=== PATIENT | male | born 1980 | race Two or more races ===

== ENCOUNTER 2019-06-02 13:46 | Inpatient (IN) | payer OTHER ==
[~2019-06-02] VITALS: Ht 175.3 cm; Wt 80.3 kg
[2019-06-02] MEDS ORDERED: LORAZEPAM INJ 2 MG/ML VIAL IV ONE ×2 (14:00→16:30)
[2019-06-02] MEDS ORDERED: IV NS 0.9% 1,000 ML BAG IV ONE ×3 (14:00→16:30)
--- NOTE | 2019-06-02 14:00 | NUR ---
EARNEST RA [address] "Acting erratic [employer] was called HR 140s BS 170" Escorted by [employer] Officer Papi [id number], TO ER BED 11, HOOKED TO MONITOR, CHANGED TO GOWN, PROVIDED W WARM BLANKET, PT AOx1, AWAITING MD HOLLAND
--- NOTE | 2019-06-02 14:01 | NUR ---
RODRIGO TOMAS AT BEDSIDE
--- NOTE | 2019-06-02 14:05 | NUR ---
PT CONFUSED, BITING CLOTHES, AGITATED. PLACED ON RESTRAINTS
[2019-06-02 14:13] LABS: BASOPHILS # (AUTO) 0.1 /CMM (0.0-0.2); BASOPHILS % (AUTO) 0.3 % (0.0-2.0); EOSINOPHILS % (AUTO) 0.3 % (0.0-6.0); HEMATOCRIT 45 % (39-51); HEMOGLOBIN 15.1 g/dL (13.5-17.5); LYMPHOCYTES # (AUTO) 1.4 /CMM (0.8-4.8); LYMPHOCYTES % (AUTO) 9.7 % (20.0-44.0); MEAN CORPUSCULAR HGB CONC 34 g/dl (31.0-36.0); MEAN CORPUSCULAR VOLUME 92 fL (80-96); MONOCYTES # (AUTO) 1.5 /CMM (0.1-1.30); MONOCYTES % (AUTO) 10.8 % (2.0-12.0); NEUTROPHILS # (AUTO) 11.3 /CMM (1.8-8.9); NEUTROPHILS % (AUTO) 78.9 % (43.0-81.0); PLATELET COUNT (AUTO) 238 /CMM (150-450); RED BLOOD CELL COUNT(AUTO) 4.86 MIL/uL (4.5-6.0); WHITE BLOOD COUNT (AUTO) 14.4 K/uL (4.3-11.0)
[2019-06-02] MEDS ORDERED: LORAZEPAM INJ 2 MG/ML VIAL ONE ×2 (14:13→16:33)
[2019-06-02 14:21] LABS: CARBON DIOXIDE 20 mmol/L (21-32); CHLORIDE 102 mmol/L (98-107); CREATININE 1.9 mg/dL (0.6-1.3); GLUCOSE 135 mg/dL (74-106); POTASSIUM 4.5 mmol/L (3.5-5.1); SODIUM SERUM 142 mmol/L (136-145); UREA NITROGEN, BLOOD 32 mg/dL (7-18)
[2019-06-02 14:34] LABS: ACETAMINOPHEN 0 ug/ml (10-30); ALANINE AMINOTRANSFERASE 38 U/L (12-78); ALBUMIN 4.7 g/dL (3.4-5.0); ALCOHOL, BLOOD < 3 mg/dL (0-0); ALKALINE PHOSPHATASE 76 U/L (46-116); ASPARTATE AMINOTRANSFERASE 41 U/L (15-37); BILIRUBIN,DIRECT 0.1 mg/dL (0.0-0.2); BILIRUBIN,TOTAL 0.8 mg/dL (0.2-1.0); TOTAL PROTEIN, SERUM 8.8 g/dL (6.4-8.2)
[2019-06-02 15:03] LABS: APPEARANCE,URINE Clear (CLEAR); BILIRUBIN,URINE Negative (NEGATIVE); BLOOD, URINE Small Ery/uL (NEGATIVE); COLOR,URINE Yellow (YELLOW); KETONES,URINE Trace (NEGATIVE); LEUKOCYTE ESTERASE ,URINE Negative (NEGATIVE); NITRITE, URINE Negative (NEGATIVE); PH,URINE 5.5 (5.0-8.0); PROTEIN,URINE 100 mg/dl (NEGATIVE); UGLUCOSE Negative (NEGATIVE); UROBILINOGEN,URINE 0.2 EU/dL (0.2)
[2019-06-02 15:13] LABS: BACTERIA,URINE Few /HPF (None Seen); FINE GRANULAR CASTS,URINE Few /LPF (None Seen); HYALINE CASTS, URINE Few /LPF (None Seen); SQUAMOUS EPITHELIAL CELL,UR Few /HPF (None Seen)
--- NOTE | 2019-06-02 15:20 | NUR ---
CMS CHECKED, CAP REFILL W/IN NORMAL LIMITS, +ROM, +SENSATION ON ALL EXTREMITIES
[2019-06-02] MEDS ORDERED: OLANZAPINE 10 MG VIAL IM ONE ×2 (15:30→15:52)
--- NOTE | 2019-06-02 15:56 | NUR ---
CALLED [facility]. HANDHOLE MACHINE OPERATOR WAS PAGED
--- NOTE | 2019-06-02 16:28 | NUR ---
PT CALM AND COOPERATIVE. REMOVED RESTRAINTS, TECH AT BEDSIDE
--- NOTE | 2019-06-02 16:32 | NUR ---
REPORT GIVEN TO AFTAB OF TELE UNIT
[2019-06-02] MEDS ORDERED: HYDROCODONE/APAP 5/325MG 1 EACH TABLET PO PRN (17:00)
[2019-06-02] MEDS ORDERED: ACETAMINOPHEN 325 MG TABLET PO PRN (17:00)
[2019-06-02] MEDS ORDERED: ONDANSETRON HCL/PF 4 MG/2 ML VIAL IVP PRN (17:00)
[2019-06-02] MEDS ORDERED: ZOLPIDEM TARTRATE 5 MG TABLET PO PRN (17:00)
[2019-06-02] MEDS ORDERED: MAG HYDROX/AL HYDROX/SIMETH 30 ML UDC PO PRN (17:00)
[2019-06-02] MEDS ORDERED: Z GUARD REMEDY 2 OZ OINT TP PRN (17:00)
[2019-06-02] MEDS ORDERED: MAGNESIUM HYDROXIDE 30 ML UDC PO PRN (17:00)
--- NOTE | 2019-06-02 17:17 | NUR ---
PT AND BELONGINGS WANDED BY SECURITY DEYANIRA GILLIS
[2019-06-02 18:35] VITALS: BP 119/81
--- NOTE | 2019-06-02 18:35 | NUR ---
HOSE FINISHERFOOD SANITARIAN NOTE RECEIVED PATIENT FROM ER BY ELIZABETH. PATIENT IS IN BED, VITAL SIGNS BP 119/81 AND IS ON CARDIAC MONITORING READING SINUS TACHYCARDIA HR 110. PATIENT BREATHING ON ROOM AIR SATURATING >95% SPO2. PATIENT BREATHING IS EVEN AND UNLABORED. PATIENT IN NO ACUTE DISTRESS. NO SOB NOTED. PATIENT IS AWAKE, ALERT AND ORIENTED X2. MD MADE AWARE OF PATIENTS ARRIVAL ON THE UNIT. PATIENT BED IS LOCKED AND IN LOWEST POSITION. CALL LIGHT WITHIN REACH. WILL ENDORSE CARE AND ADMISSION TO PM SHIFT FOR ANNALISA.
--- NOTE | 2019-06-02 19:30 | NUR ---
RECEIVED PATIENT IN BED AWAKE. NEW ADMISSION FOR LYUBOV FROM ER. AO X 3, SLOW TO ANSWER QUESTIONS AND SLOW TO FOLLOW DIRECTIONS. NO ACUTE DISTRESS NOTED. DENIES ANY PAIN AT THIS TIME. TELE READING SINUS TACH HR 114. IV SITE PATENT, INTACT; FLUSHED. SAFETY REMINDERS GIVEN. ON LOW BED WITH BILATERAL UPPER SIDE RAILS UP. CALL [place] WITHIN EASY REACH. WILL CONTINUE TO MONITOR.
[2019-06-02 20:00] VITALS: BP 118/93
[2019-06-02] MEDS: IV NS 0.9% 1,000 ML IV PRN (20:56)
[2019-06-02] MEDS ORDERED: MIRT15TA PO (22:59)
[2019-06-03] VITALS: BP 125/81
--- NOTE | 2019-06-03 02:00 | NUR ---
PATIENT AWAKE. PER PATIENT HE SLEPT FOR 15 MINS; WILL TRY TO SLEEP AGAIN. NO ACUTE DISTRESS NOTED. DENIES ANY PAIN. IVF INFUSING ORDERED. WILL CONTINUE TO MONITOR.
[2019-06-03 04:00] VITALS: BP 112/75
[2019-06-03] MEDS: IV NS 0.9% 1,000 ML IV PRN (04:33)
--- NOTE | 2019-06-03 06:14 | NUR ---
PATIENT INSISTED ON LEAVING AMA. RISKS OF LEAVING AMA AND BENEFITS OF STAYING IN THE HOSPITAL GIVEN TO PATIENT. PATIENT STILL STRONGLY INSISTED ON LEAVING AMA. PATIENT SIGNED AMA FORM. ALL BELONGINGS GIVEN TO PATIENT. IV DISCONTINUED. ARMBAND TAKEN OFF. PATIENT AO X 3, AMBULATING WITH STEADY GAIT. MAREN MAN AUTOMOTIVE DISMANTLER INFORMED. UMANG SHIRT IRONER SUPERVISOR INFORMED.
== END 2019-06-03 06:05 | disposition left against medical advice (07) | DRG 682 ==
LOC: ER 13:50 → TELE 16:32
PROVIDERS: ADMIT Student in an Organized Health Care Education/Training Program; ATTEND Student in an Organized Health Care Education/Training Program
DX: N17.0 Acute kidney failure with tubular necrosis (principal); G92 Toxic encephalopathy; E87.2 Acidosis; M62.82 Rhabdomyolysis; F15.10 Other stimulant abuse, uncomplicated; F10.10 Alcohol abuse, uncomplicated; Y90.0 Blood alcohol level of less than 20 mg/100 ml; F17.200 Nicotine dependence, unspecified, uncomplicated; E86.0 Dehydration; Z59.0 Homelessness; D72.829 Elevated white blood cell count, unspecified
CPT/HCPCS: 36415; 71045-TC; 80048-TC; 80076-TC; 80305; 81000-TC; 82550-TC; 83605-TC; 84484-TC; 85025-TC; 87081-TC; G0378; G0480; J2060; J3490; J7030

== ENCOUNTER 2019-06-12 08:25 | Emergency (ER) | payer MEDICAID, OTHER ==
[~2019-06-12] VITALS: Ht 175.3 cm; Wt 74.8 kg
[~2019-06-12 08:25] MED LIST: MIRT15TA PO
--- NOTE | 2019-06-12 08:29 | NUR ---
[facility] TO ER; "PT IS COMING IN AND OUT OF TRAFFIC" THE PATIENT WAS STOPPED BY [employer], HE INITIALLY REFUSED TO COMPY; ADMITS TO USING [facility] LAST NIGHT, -SI, -HI. TO ER BED 15, CHANGED TO GOWN, HOOKED TO MONITOR. AWAITING MD HOLLAND.
--- NOTE | 2019-06-12 08:32 | NUR ---
SECURITY CALLED - WANDED
--- NOTE | 2019-06-12 08:36 | NUR ---
DR MICHAUD AT BEDSIDE
[2019-06-12 09:23] LABS: BASOPHILS # (AUTO) 0.1 /CMM (0.0-0.2); BASOPHILS % (AUTO) 0.9 % (0.0-2.0); EOSINOPHILS % (AUTO) 0.5 % (0.0-6.0); HEMATOCRIT 37 % (39-51); HEMOGLOBIN 12.7 g/dL (13.5-17.5); LYMPHOCYTES # (AUTO) 0.6 /CMM (0.8-4.8); LYMPHOCYTES % (AUTO) 9.5 % (20.0-44.0); MEAN CORPUSCULAR HGB CONC 34 g/dl (31.0-36.0); MEAN CORPUSCULAR VOLUME 93 fL (80-96); MONOCYTES # (AUTO) 0.3 /CMM (0.1-1.30); MONOCYTES % (AUTO) 4.7 % (2.0-12.0); NEUTROPHILS # (AUTO) 5.5 /CMM (1.8-8.9); NEUTROPHILS % (AUTO) 84.4 % (43.0-81.0); PLATELET COUNT (AUTO) 240 /CMM (150-450); RED BLOOD CELL COUNT(AUTO) 4.02 MIL/uL (4.5-6.0); WHITE BLOOD COUNT (AUTO) 6.6 K/uL (4.3-11.0)
[2019-06-12 09:28] LABS: CALCIUM, SERUM 8.9 mg/dL (8.5-10.1); CARBON DIOXIDE 22 mmol/L (21-32); CHLORIDE 105 mmol/L (98-107); GLUCOSE 93 mg/dL (74-106); POTASSIUM 3.7 mmol/L (3.5-5.1); SODIUM SERUM 140 mmol/L (136-145); UREA NITROGEN, BLOOD 15 mg/dL (7-18)
[2019-06-12] MEDS ORDERED: IV NS 0.9% 1,000 ML BAG IV ONE ×2 (09:30→10:30)
[2019-06-12 09:34] LABS: ACETAMINOPHEN 0 ug/ml (10-30); ALANINE AMINOTRANSFERASE 37 U/L (12-78); ALBUMIN 4.1 g/dL (3.4-5.0); ALCOHOL, BLOOD < 3 mg/dL (0-0); ALKALINE PHOSPHATASE 73 U/L (46-116); ASPARTATE AMINOTRANSFERASE 41 U/L (15-37); BILIRUBIN,DIRECT 0.2 mg/dL (0.0-0.2); BILIRUBIN,TOTAL 0.7 mg/dL (0.2-1.0); SALICYLATE 0.5 mg/dL (2.8-20.0); TOTAL PROTEIN, SERUM 7.4 g/dL (6.4-8.2)
--- NOTE | 2019-06-12 09:38 | NUR ---
URINE SAMPLE SENT TO LAB
[2019-06-12 09:42] LABS: APPEARANCE,URINE Clear (CLEAR); BILIRUBIN,URINE Negative (NEGATIVE); BLOOD, URINE Negative Ery/uL (NEGATIVE); COLOR,URINE Yellow (YELLOW); KETONES,URINE 40 (NEGATIVE); LEUKOCYTE ESTERASE ,URINE Negative (NEGATIVE); NITRITE, URINE Negative (NEGATIVE); PH,URINE 5.5 (5.0-8.0); PROTEIN,URINE Trace mg/dl (NEGATIVE); UGLUCOSE Negative (NEGATIVE)
[2019-06-12 09:47] LABS: BACTERIA,URINE Few /HPF (None Seen); RBC,URINE 0-2 /HPF (0-2); SQUAMOUS EPITHELIAL CELL,UR Rare /HPF (None Seen); URINE AMORPHOUS URATE Rare /HPF (None Seen); WBC,URINE 0-2 /HPF (0-3)
[2019-06-12 09:48] LABS: MUCUS,URINE Few /LPF (None Seen)
--- NOTE | 2019-06-12 10:54 | NUR ---
RECEIVED VERBAL ORDER FROM DR MICHAUD FOR ZYPREXA 5M PO. CARRIED OUT
[2019-06-12 14:35] VITALS: BP 132/61
--- NOTE | 2019-06-12 14:35 | NUR ---
MEDICALLY CLEARED FOR DISCHARGE. IV removed. Catheter intact and site benign. Pressure and 4x4 applied to site. No bleeding noted.
== END 2019-06-12 14:36 | disposition home or self-care (01) ==
LOC: ER 08:27
DX: F15.10 Other stimulant abuse, uncomplicated (principal); R00.0 Tachycardia, unspecified; F32.9 Major depressive disorder, single episode, unspecified; F19.10 Other psychoactive substance abuse, uncomplicated; F10.10 Alcohol abuse, uncomplicated; F17.200 Nicotine dependence, unspecified, uncomplicated; Y90.0 Blood alcohol level of less than 20 mg/100 ml; Z59.0 Homelessness
CPT/HCPCS: 36415; 80048; 80076; 80307; 80329; 81001; 85025; 93005; 99284; J7030 ×2; 80305; 81000-TC; G0480

== ENCOUNTER 2022-10-12 01:02 | Emergency (ER) | payer SELFPAY ==
[~2022-10-12 01:02] MED LIST changes: +MIRT-121 PO; -MIRT15TA PO
--- NOTE | 2022-10-12 01:15 | NUR ---
vinod, upon assessement, pt would like to leave, denies si/hi, just felt anxious but now feels better. pt is declining to see the doctor.
== END 2022-10-12 01:16 | disposition left against medical advice (07) ==
LOC: ER 01:03
DX: Z53.21 Procedure and treatment not carried out due to patient leaving prior to being seen by health care provider (principal)